=== PATIENT | female | born 1980 | race Caucasian/White ===

== ENCOUNTER 2017-11-20 20:59 | Emergency (ER) | payer BC ==
[~2017-11-20] VITALS: Ht 165.1 cm; Wt 66.8 kg
[2017-11-20 21:38] LABS: BASOPHILS % (AUTO) 0.5 % (0-1); EOSINOPHILS # (AUTO) 0.2 X10'3 (0-0.9); EOSINOPHILS % (AUTO) 3.3 % (0-6); HEMOGLOBIN 13.3 g/dl (12.0-16.0); LYMPHOCYTES # (AUTO) 2.3 X10'3 (1.1-4.8); LYMPHOCYTES % (AUTO) 33.1 % (21-51); MEAN CORPUSCULAR HEMOGLOBIN 31.9 PG (27.0-31.0); MEAN CORPUSCULAR VOLUME 91.3 FL (78-98); MEAN PLATELET VOLUME 8.9 FL (7.4-10.4); MONOCYTES # (AUTO) 0.4 X10'3 (0-0.9); MONOCYTES % (AUTO) 6.2 % (2-12); NEUTROPHILS % (AUTO) 56.9 % (42-75); PLATELET COUNT 201 X10'3 (140-440); RED BLOOD COUNT 4.16 X10'6 (4.20-5.60); RED CELL DISTRIBUTION WIDTH 12.6 % (11.5-14.5); WHITE BLOOD COUNT 7.1 X10'3 (4.5-11.0)
[2017-11-20 21:47] LABS: URINE HCG NEGATIVE (NEG)
[2017-11-20 21:49] LABS: PROTHROMBIN TIME 9.9 SECONDS (9.0-12.0)
[2017-11-20 21:52] LABS: CLARITY,URINE CLEAR (Clear); COLOR,URINE STRAW (Yellow); GLUCOSE, URINE NEGATIVE (Neg); KETONES,URINE NEGATIVE (Neg); LEUKOCYTE ESTERASE ,URINE NEGATIVE (Neg); NITRITES, URINE NEGATIVE (Neg); OCCULT BLOOD,URINE NEGATIVE (Neg); PROTEIN,URINE NEGATIVE (Neg); UA COLLECTION TYPE CLN CATCH MIDSTREAM; UROBILINOGEN,URINE 0.2 E.U/dL (0.2-1.0)
[2017-11-20 22:04] LABS: ALANINE AMINOTRANSFERASE 23 U/L (12-78); ALBUMIN 4.2 G/DL (3.4-5.0); ALBUMIN/GLOBULIN RATIO 1.2 (1.1-1.5); ALKALINE PHOSPHATASE 39 IU/L (46-116); ANION GAP 12 (8-16); ASPARTATE AMINO TRANSFERASE 20 U/L (10-37); BILIRUBIN,TOTAL 0.7 MG/DL (0.1-1.0); BLOOD UREA NITROGEN 11 MG/DL (7-18); BUN/CREATININE RATIO 14.5 (6.6-38.0); CALCIUM 9.1 MG/DL (8.5-10.1); CHLORIDE 102 MMOL/L (99-107); CREATININE 0.76 MG/DL (0.40-0.90); GLUCOSE 99 MG/DL (70-104); LIPASE 163 U/L (73-393); POTASSIUM 3.6 MMOL/L (3.5-5.1); SODIUM 141 MMOL/L (135-145); TOTAL CARBON DIOXIDE 26.7 MMOL/L (24-32); TOTAL PROTEIN 7.7 G/DL (6.4-8.2); eGFR 85 ML/MIN
[2017-11-20] MEDS ORDERED: NO HOME MEDS (22:51)
[2017-11-21 01:39] VITALS: BP 124/78
== END 2017-11-21 01:40 | disposition home or self-care (01) ==
LOC: ER 20:59
DX: R10.31 Right lower quadrant pain (principal); R11.0 Nausea; M54.9 Dorsalgia, unspecified
CPT/HCPCS: 36415; 74176; 80053; 81003; 81025; 83690; 85025; 85610; 99285

== ENCOUNTER 2017-11-29 10:02 | Observation (INO) | payer BC ==
[2017-11-29] VITALS (29 sets, daily range): BP systolic 99–152; BP diastolic 47–104
[~2017-11-29] VITALS: Ht 165.1 cm; Wt 65.0 kg
[~2017-11-29 10:02] MED LIST: NO HOME MEDS
[2017-11-29] MEDS ORDERED: ringers solution, lacted 1,000 ML IV SCH ×2 (10:30→14:26)
[2017-11-29] MEDS ORDERED: ceFOXitin 2 GM ADDvantage bag 100 ML IV ONE (10:30)
[2017-11-29] MEDS ORDERED: famotidine 20mg tablet PO ONE (10:30)
[2017-11-29 11:30] LABS: BASOPHILS % (AUTO) 0.5 % (0-1); EOSINOPHILS % (AUTO) 0.7 % (0-6); LYMPHOCYTES # (AUTO) 1.3 X10'3 (1.1-4.8); LYMPHOCYTES % (AUTO) 29.4 % (21-51); MEAN CORPUSCULAR HEMOGLOBIN 32.1 PG (27.0-31.0); MEAN CORPUSCULAR VOLUME 91.7 FL (78-98); MEAN PLATELET VOLUME 9.1 FL (7.4-10.4); MONOCYTES # (AUTO) 0.4 X10'3 (0-0.9); MONOCYTES % (AUTO) 7.9 % (2-12); NEUTROPHILS # (AUTO) 2.8 X10'3 (1.8-7.7); NEUTROPHILS % (AUTO) 61.5 % (42-75); PRE OP HEMATOCRIT 37.4 % (35.0-45.0); PRE OP HEMOGLOBIN 13.1 g/dL (12.0-16.0); PRE OP PLATELET COUNT 192 X10'3 (140-440); RED BLOOD COUNT 4.08 X10'6 (4.20-5.60); RED CELL DISTRIBUTION WIDTH 12.8 % (11.5-14.5)
[2017-11-29 11:31] LABS: CLARITY,URINE CLEAR (Clear); COLOR,URINE YELLOW (Yellow); GLUCOSE, URINE NEGATIVE (Neg); KETONES,URINE NEGATIVE (Neg); LEUKOCYTE ESTERASE ,URINE NEGATIVE (Neg); NITRITES, URINE NEGATIVE (Neg); OCCULT BLOOD,URINE NEGATIVE (Neg); PH,URINE 5.5 (4.8-8.0); PROTEIN,URINE NEGATIVE (Neg); UA COLLECTION TYPE CLN CATCH MIDSTREAM; URINE HCG NEGATIVE (NEG); UROBILINOGEN,URINE 0.2 E.U/dL (0.2-1.0)
[2017-11-29 11:43] LABS: ALBUMIN 3.9 G/DL (3.4-5.0); ALBUMIN/GLOBULIN RATIO 1.2 (1.1-1.5); ALKALINE PHOSPHATASE 41 IU/L (46-116); BLOOD UREA NITROGEN 9 MG/DL (7-18); BUN/CREATININE RATIO 12.2 (6.6-38.0); CALCIUM 9.1 MG/DL (8.5-10.1); CHLORIDE 106 MMOL/L (99-107); CREATININE 0.74 MG/DL (0.40-0.90); PRE OP ALT 17 U/L (30-65); PRE OP ANION GAP 10 (8-16); PRE OP AST 16 U/L (10-37); PRE OP BILIRUB, TOTAL 0.6 MG/DL (0.0-1.0); PRE OP GLUCOSE 86 MG/DL (70-104); PRE OP SODIUM 142 MMOL/L (135-145); TOTAL CARBON DIOXIDE 26.2 MMOL/L (24-32); TOTAL PROTEIN 7.2 G/DL (6.4-8.2); eGFR 88 ML/MIN
[2017-11-29] MEDS ORDERED: hydrALAZINE 20mg/ml inj. IV PRN (14:30)
[2017-11-29] MEDS ORDERED: fentaNYL/PF 50MCG/1 ML 2ML syringe IV PRN ×2 (14:30)
[2017-11-29] MEDS ORDERED: labetalol 20mg/4ml (5mg/ml) syringe IV PRN (14:30)
[2017-11-29] MEDS ORDERED: ondansetron/PF 4mg/2ml inj IV PRN ×2 (14:30→16:50)
[2017-11-29] MEDS ORDERED: morphine 4 MG/ML inj SYRINge IV PRN (14:30)
[2017-11-29] MEDS ORDERED: ROPIVAcaine 0.5% (5mg/ml) 30ml vial ONE (14:45)
[2017-11-29] MEDS ORDERED: ceFAZolin 1000mg inj ONE (14:45)
[2017-11-29] MEDS ORDERED: midazolam 2 mg/2 ml injection ONE (15:16)
[2017-11-29] MEDS ORDERED: fentaNYL/PF 50MCG/1 ML 2ML syringe ONE (15:16)
[2017-11-29] MEDS ORDERED: rocuronium 10mg/ml inj IV ONE ×2 (15:17→16:22)
[2017-11-29] MEDS ORDERED: propofol inj 20 ML IV ONE (15:17)
[2017-11-29] MEDS ORDERED: LIDOcaine 2% (20mg/ml) 5ml vial ONE (15:17)
[2017-11-29] MEDS ORDERED: glycopyrrolate 0.2mg/ml inj ONE (15:20)
[2017-11-29] MEDS ORDERED: sevoflurane 250ml liquid IH ONE (15:20)
[2017-11-29] MEDS ORDERED: neostigmine in sterile water inj 5 MG/5 ML syringe IJ ONE (15:20)
[2017-11-29] MEDS ORDERED: ondansetron/PF 4mg/2ml inj ONE (15:46)
[2017-11-29] MEDS ORDERED: dexamethasone sod phosphate 4mg/ml inj. ONE (15:46)
[2017-11-29] MEDS ORDERED: HYDROcodone/acetaminophen 5mg/325mg tablet PO PRN (16:50)
[2017-11-29] MEDS ORDERED: CADD PCA waste documentation MC PRN (16:50)
[2017-11-29] MEDS ORDERED: naloxone 0.4 mg/ml inj IV PRN (16:50)
[2017-11-29] MEDS: morphine 4 MG/ML inj SYRINge IV PRN ×2 (17:40→17:53)
[2017-11-29] MEDS: HYDROmorphone/NS 1 mg/ml CADD 50 ML IV SCH ×4 (18:04→23:00)
[2017-11-29] MEDS: Potassium Cl inj 20 MEQ in ringers solution, lacted 1,000 ML IV SCH (21:00)
[2017-11-30] VITALS: BP 99/53
[2017-11-30] MEDS: HYDROmorphone/NS 1 mg/ml CADD 50 ML IV SCH ×6 (01:00→10:54)
[2017-11-30 04:00] VITALS: BP 105/59
[2017-11-30] MEDS: Potassium Cl inj 20 MEQ in ringers solution, lacted 1,000 ML IV SCH ×2 (04:59→09:00)
[2017-11-30 05:47] LABS: BASOPHILS % (AUTO) 0 % (0-1); EOSINOPHILS % (AUTO) 0 % (0-6); HEMATOCRIT 31.7 % (35.0-45.0); HEMOGLOBIN 10.9 g/dl (12.0-16.0); LYMPHOCYTES # (AUTO) 0.7 X10'3 (1.1-4.8); MEAN CORPUSCULAR HEMOGLOBIN 31.8 PG (27.0-31.0); MEAN CORPUSCULAR HGB CONC 34.4 % (33.0-36.5); MEAN CORPUSCULAR VOLUME 92.3 FL (78-98); MEAN PLATELET VOLUME 9.4 FL (7.4-10.4); MONOCYTES # (AUTO) 0.6 X10'3 (0-0.9); MONOCYTES % (AUTO) 6.5 % (2-12); NEUTROPHILS # (AUTO) 8.1 X10'3 (1.8-7.7); NEUTROPHILS % (AUTO) 86.5 % (42-75); PLATELET COUNT 176 X10'3 (140-440); RED BLOOD COUNT 3.43 X10'6 (4.20-5.60); RED CELL DISTRIBUTION WIDTH 12.6 % (11.5-14.5); WHITE BLOOD COUNT 9.3 X10'3 (4.5-11.0)
[2017-11-30 05:58] LABS: ALANINE AMINOTRANSFERASE 38 U/L (12-78); ALBUMIN 3.1 G/DL (3.4-5.0); ALBUMIN/GLOBULIN RATIO 1.1 (1.1-1.5); ALKALINE PHOSPHATASE 31 IU/L (46-116); ANION GAP 6 (8-16); ASPARTATE AMINO TRANSFERASE 40 U/L (10-37); BILIRUBIN,TOTAL 0.9 MG/DL (0.1-1.0); BLOOD UREA NITROGEN 9 MG/DL (7-18); BUN/CREATININE RATIO 11.8 (6.6-38.0); CALCIUM 8.6 MG/DL (8.5-10.1); CHLORIDE 104 MMOL/L (99-107); CREATININE 0.76 MG/DL (0.40-0.90); GLUCOSE 117 MG/DL (70-104); POTASSIUM 4.4 MMOL/L (3.5-5.1); SODIUM 139 MMOL/L (135-145); TOTAL CARBON DIOXIDE 28.9 MMOL/L (24-32); TOTAL PROTEIN 5.9 G/DL (6.4-8.2); eGFR 85 ML/MIN
[2017-11-30 07:14] VITALS: BP 102/61
[2017-11-30 11:22] VITALS: BP 117/65
[2017-11-30 11:41] LABS: HEMATOCRIT 30.2 % (35.0-45.0); HEMOGLOBIN 10.5 g/dl (12.0-16.0); MEAN CORPUSCULAR HGB CONC 34.8 % (33.0-36.5); MEAN CORPUSCULAR VOLUME 91.9 FL (78-98); MEAN PLATELET VOLUME 9.2 FL (7.4-10.4); PLATELET COUNT 164 X10'3 (140-440); RED BLOOD COUNT 3.28 X10'6 (4.20-5.60); RED CELL DISTRIBUTION WIDTH 12.9 % (11.5-14.5); WHITE BLOOD COUNT 9.8 X10'3 (4.5-11.0)
== END 2017-11-30 12:39 | disposition home or self-care (01) ==
LOC: PAS 10:02 → SUR 3N 19:04
PROVIDERS: ADMIT Surgery; ATTEND Surgery
DX: K80.10 Calculus of gallbladder with chronic cholecystitis without obstruction (principal); D62 Acute posthemorrhagic anemia; I83.91 Asymptomatic varicose veins of right lower extremity
CPT/HCPCS: 36415; 47562; 80053; 81003; 81025; 85025; 85027; 96374; 96375; G0378; J0690; J0694; J1100; J1170; J2001; J2250; J2270; J2405; J2704; J2710; J2795; J3010; J3480; J3490; J7120; A7000

== ENCOUNTER 2019-10-07 00:52 | Inpatient (IN) | payer BC ==
[~2019-10-07] VITALS: Ht 165.1 cm; Wt 67.3 kg
[2019-10-07] MEDS ORDERED: aspirin 325mg tablet PO ONE (03:15)
[2019-10-07] MEDS ORDERED: heparin 25,000 UNIT/250ml bag 250 ML IV SCH (04:43)
[2019-10-07 04:44] LABS: CLARITY,URINE CLEAR (Clear); COLOR,URINE YELLOW (Yellow); GLUCOSE, URINE NEGATIVE (Neg); KETONES,URINE NEGATIVE (Neg); LEUKOCYTE ESTERASE ,URINE SMALL (Neg); NITRITES, URINE NEGATIVE (Neg); OCCULT BLOOD,URINE NEGATIVE (Neg); PH,URINE 5.5 (4.8-8.0); PROTEIN,URINE NEGATIVE (Neg); UROBILINOGEN,URINE 0.2 E.U/dL (0.2-1.0)
[2019-10-07] MEDS ORDERED: heparin 10,000 units/1 ML INJ IV ONE ×3 (04:45→05:25)
[2019-10-07 04:59] LABS: BACTERIA,URINE NONE SEEN /HPF (Neg); RBC,URINE NONE SEEN /HPF (0-2); SQUAMOUS EPITHELIAL CELL,UR FEW /LPF (FEW); UA COLLECTION TYPE CLN CATCH MIDSTREAM; WBC,URINE 0-4 /HPF (0-4)
[2019-10-07] MEDS ORDERED: magnesium 4gm in 100ml NS 100 ML IV PRN (05:10)
[2019-10-07] MEDS ORDERED: HYDROcodone/acetaminophen 10/325mg tab PO PRN (05:10)
[2019-10-07] MEDS ORDERED: magnesium 2GM in 50ml NS 50 ML IV PRN (05:10)
[2019-10-07] MEDS ORDERED: HYDROcodone/acetaminophen 5mg/325mg tablet PO PRN (05:10)
[2019-10-07] MEDS ORDERED: ondansetron/PF 4mg/2ml inj IV PRN (05:10)
[2019-10-07] MEDS ORDERED: magnesium hydroxide 30ml (MOM) UD suspension PO PRN (05:10)
[2019-10-07] MEDS ORDERED: mag hydrox/Alum hydrox/simeth 30ml oral suspension PO PRN (05:10)
[2019-10-07] MEDS ORDERED: acetaminophen 325mg tablet PO PRN (05:10)
[2019-10-07] MEDS ORDERED: potassium Cl 20 mEq SR tablet PO PRN ×2 (05:10)
[2019-10-07] MEDS ORDERED: potassium CL 10mEq/100ml bag 100 ML IV PRN ×2 (05:10)
[2019-10-07] MEDS ORDERED: heparin 10,000 units/1 ML INJ IV PRN (05:10)
[2019-10-07 05:34] LABS: BASOPHILS % (AUTO) 0.6 % (0-1); EOSINOPHILS % (AUTO) 0.4 % (0-6); LYMPHOCYTES # (AUTO) 1.6 X10'3 (1.1-4.8); LYMPHOCYTES % (AUTO) 27.9 % (21-51); MEAN CORPUSCULAR HEMOGLOBIN 32.1 PG (27.0-31.0); MEAN CORPUSCULAR HGB CONC 34.2 g/dL (33.0-36.5); MEAN CORPUSCULAR VOLUME 93.9 FL (78-98); MEAN PLATELET VOLUME 9.5 FL (7.4-10.4); MONOCYTES # (AUTO) 0.5 X10'3 (0-0.9); NEUTROPHILS # (AUTO) 3.5 X10'3 (1.8-7.7); NEUTROPHILS % (AUTO) 62.1 % (42-75); PLATELET COUNT 192 X10'3 (140-440); RED BLOOD COUNT 4.04 X10'6 (4.20-5.60); RED CELL DISTRIBUTION WIDTH 13.1 % (11.5-14.5); WHITE BLOOD COUNT 5.7 X10'3 (4.5-11.0)
[2019-10-07 05:36] LABS: D-DIMER 0.63 MG/L FEU (0-0.50); PARTIAL THROMBOPLASTIN TIME 25 SECONDS (22-32)
[2019-10-07 05:40] LABS: ALANINE AMINOTRANSFERASE 21 U/L (12-78); ALBUMIN 3.8 G/DL (3.4-5.0); ALBUMIN/GLOBULIN RATIO 1.1 (1.1-1.5); ALKALINE PHOSPHATASE 40 IU/L (46-116); ANION GAP 11 (8-16); ASPARTATE AMINO TRANSFERASE 19 U/L (10-37); BILIRUBIN,TOTAL 0.5 MG/DL (0.1-1.0); BLOOD UREA NITROGEN 12 MG/DL (7-18); CALCIUM 9.2 MG/DL (8.5-10.1); CHLORIDE 104 MMOL/L (99-107); GLUCOSE 99 MG/DL (70-104); MAGNESIUM 2.1 MG/DL (1.5-2.4); POTASSIUM 4.1 MMOL/L (3.5-5.1); SODIUM 140 MMOL/L (135-145); TOTAL CARBON DIOXIDE 24.7 MMOL/L (24-32); TOTAL PROTEIN 7.3 G/DL (6.4-8.2); eGFR 79 ML/MIN
[2019-10-07] MEDS: heparin 25,000 UNIT/250ml bag 250 ML IV SCH ×2 (06:04→19:42)
--- NOTE | 2019-10-07 07:08 | NUR ---
pt states its not real painful, its just like pressure right upper arm.
--- NOTE | 2019-10-07 07:40 | NUR ---
Patient in room ED 13. I have received report from CHARLENE Vera in ER and had the opportunity to ask questions and assume patient care. Pt to arrive to room 345A.
[2019-10-07] MEDS: K and/or MAG REPLACEMENT MC SCH ×2 (08:00→20:00)
[2019-10-07 08:15] VITALS: BP 122/68
[2019-10-07 12:26] VITALS: BP 119/74
[2019-10-07] MEDS: normal saline 1000ml 1,000 ML IV SCH ×2 (16:56→21:47)
--- NOTE | 2019-10-07 18:53 | NUR ---
Problems reprioritized. Patient report given, questions answered & plan of care reviewed with Diann CHANG and Wing CHANG.
--- NOTE | 2019-10-07 19:07 | NUR ---
Patient in room [facility] 345. I have received report from Marlene Alvarez RN and had the opportunity to ask questions and assume patient care.
[2019-10-07 20:00] VITALS: BP 133/77
[2019-10-08 00:04] VITALS: BP 110/73
[2019-10-08] MEDS: normal saline 1000ml 1,000 ML IV SCH ×2 (01:09→02:51)
[2019-10-08 02:04] LABS: EOSINOPHILS % (AUTO) 0.9 % (0-6); HEMATOCRIT 35.6 % (35.0-45.0); HEMOGLOBIN 12.2 g/dl (12.0-16.0); LYMPHOCYTES # (AUTO) 2.2 X10'3 (1.1-4.8); LYMPHOCYTES % (AUTO) 44.6 % (21-51); MEAN CORPUSCULAR HEMOGLOBIN 32.5 PG (27.0-31.0); MEAN CORPUSCULAR HGB CONC 34.4 g/dL (33.0-36.5); MEAN CORPUSCULAR VOLUME 94.5 FL (78-98); MEAN PLATELET VOLUME 9.4 FL (7.4-10.4); MONOCYTES # (AUTO) 0.4 X10'3 (0-0.9); MONOCYTES % (AUTO) 8.8 % (2-12); NEUTROPHILS # (AUTO) 2.3 X10'3 (1.8-7.7); NEUTROPHILS % (AUTO) 44.7 % (42-75); PLATELET COUNT 153 X10'3 (140-440); RED BLOOD COUNT 3.76 X10'6 (4.20-5.60); RED CELL DISTRIBUTION WIDTH 12.9 % (11.5-14.5)
[2019-10-08] MEDS: heparin 25,000 UNIT/250ml bag 250 ML IV SCH ×2 (02:13→02:50)
[2019-10-08 02:17] LABS: ALANINE AMINOTRANSFERASE 19 U/L (12-78); ALBUMIN 3.3 G/DL (3.4-5.0); ALBUMIN/GLOBULIN RATIO 1.1 (1.1-1.5); ALKALINE PHOSPHATASE 36 IU/L (46-116); ANION GAP 8 (8-16); ASPARTATE AMINO TRANSFERASE 18 U/L (10-37); BILIRUBIN,TOTAL 0.8 MG/DL (0.1-1.0); BLOOD UREA NITROGEN 6 MG/DL (7-18); BUN/CREATININE RATIO 9.2 (6.6-38.0); CALCIUM 8.5 MG/DL (8.5-10.1); CHLORIDE 107 MMOL/L (99-107); CREATININE 0.65 MG/DL (0.40-0.90); GLUCOSE 93 MG/DL (70-104); MAGNESIUM 1.9 MG/DL (1.5-2.4); POTASSIUM 3.8 MMOL/L (3.5-5.1); SODIUM 140 MMOL/L (135-145); TOTAL CARBON DIOXIDE 25.3 MMOL/L (24-32); TOTAL PROTEIN 6.4 G/DL (6.4-8.2); eGFR > 90 ML/MIN
--- NOTE | 2019-10-08 02:22 | NUR ---
[facility] flowsheet @ 1941 on 10/07/19 shows 13.00 units, should show 1300 units, 13mL/HR
--- NOTE | 2019-10-08 06:03 | NUR ---
Problems reprioritized. Patient report given, questions answered & plan of care reviewed with Marlene Alvarez RN.
--- NOTE | 2019-10-08 06:03 | NUR ---
Patient in room [facility] 345. I have received report from CHARLENE Dimas and had the opportunity to ask questions and assume patient care.
[2019-10-08 07:19] VITALS: BP 122/71
[2019-10-08] MEDS: K and/or MAG REPLACEMENT MC SCH (08:00)
[2019-10-08 11:30] VITALS: BP 119/74
--- NOTE | 2019-10-08 12:00 | NUR ---
Patient discharged with education regarding DVTs and pt states she understands and has a follow up appointment with Dr. Jaeger on September. Explained the risks and s/s to be aware of (increased redness, increasing pain in problem area in R upper arm, increased swelling, etc.) Patient states she feels comfortable leaving, as she has her follow up oskar already set up. Patient also states she understands she is not to do any heavy lifting or intense gym workout sessions with weights/lifting using her arm. 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
== END 2019-10-08 12:00 | disposition home or self-care (01) | DRG 301 ==
LOC: ER 00:52 → ED HOLD 05:15 → SUR 3N 07:54
PROVIDERS: ADMIT Family Medicine; ATTEND Internal Medicine
PROC: B54MZZA Ultrasonography of Right Upper Extremity Veins, Guidance (ICD-10-PCS; principal; 2019-10-08)
DX: I82.611 Acute embolism and thrombosis of superficial veins of right upper extremity (principal); Z90.49 Acquired absence of other specified parts of digestive tract; Z87.891 Personal history of nicotine dependence
CPT/HCPCS: 36415; 80053; 81001; 83735; 85025; 85379; 85610; 85730; 87081; 87088; 93971; 99291; G0378; J1644; J7030